=== PATIENT | male | born 1950 | race Asian ===

== ENCOUNTER 2018-01-01 08:31 | Inpatient (IN) | payer MEDICARE, MEDICAID ==
[~2018-01-01] VITALS: Ht 154.9 cm; Wt 82.6 kg
[~2018-01-01 08:31] MED LIST: ALLO100T PO; COLC0.6T69 PO; GLIP5TAB13 PO; LISI-600 PO; RANI150T44 PO
[2018-01-01] MEDS ORDERED: aspirin 81mg tab.chew PO ONE (08:50)
[2018-01-01 09:02] LABS: BASOPHILS % (AUTO) 0.5 % (0-1); EOSINOPHILS # (AUTO) 0.1 X10'3 (0-0.9); EOSINOPHILS % (AUTO) 1.7 % (0-6); HEMATOCRIT 31.8 % (42.0-52.0); LYMPHOCYTES # (AUTO) 1.4 X10'3 (1.1-4.8); LYMPHOCYTES % (AUTO) 16.7 % (21-51); MEAN CORPUSCULAR HEMOGLOBIN 32.6 PG (27.0-31.0); MEAN CORPUSCULAR HGB CONC 34.5 % (33.0-36.5); MEAN CORPUSCULAR VOLUME 94.5 FL (78-98); MEAN PLATELET VOLUME 9.4 FL (7.4-10.4); MONOCYTES # (AUTO) 0.4 X10'3 (0-0.9); MONOCYTES % (AUTO) 5.1 % (2-12); NEUTROPHILS # (AUTO) 6.4 X10'3 (1.8-7.7); PLATELET COUNT 153 X10'3 (140-440); RED BLOOD COUNT 3.36 X10'6 (4.70-6.10); RED CELL DISTRIBUTION WIDTH 13.1 % (11.5-14.5); WHITE BLOOD COUNT 8.4 X10'3 (4.5-11.0)
[2018-01-01 09:28] LABS: ALANINE AMINOTRANSFERASE 16 U/L (12-78); ALBUMIN 2.9 G/DL (3.4-5.0); ALBUMIN/GLOBULIN RATIO 0.6 (1.1-1.5); ALKALINE PHOSPHATASE 113 IU/L (46-116); ANION GAP 13 (8-16); ASPARTATE AMINO TRANSFERASE 19 U/L (10-37); BILIRUBIN,TOTAL 0.3 MG/DL (0.1-1.0); BLOOD UREA NITROGEN 41 MG/DL (7-18); BUN/CREATININE RATIO 10.3 (5.4-32.0); CALCIUM 7.1 MG/DL (8.5-10.1); CHLORIDE 109 MMOL/L (99-107); CREATININE 3.99 MG/DL (0.60-1.10); GLUCOSE 93 MG/DL (70-104); POTASSIUM 4.9 MMOL/L (3.5-5.1); SODIUM 144 MMOL/L (135-145); TOTAL CARBON DIOXIDE 21.7 MMOL/L (24-32); TOTAL PROTEIN 7.5 G/DL (6.4-8.2); eGFR 15 ML/MIN
[2018-01-01] MEDS ORDERED: cloNIDine 0.1 mg tablet PO ONE (09:40)
[2018-01-01] MEDS ORDERED: furosemide 10 MG/1 ML 10ml inj IV ONE (09:40)
[2018-01-01 09:55] LABS: PARTIAL THROMBOPLASTIN TIME 27 SECONDS (22-32); PROTHROMBIN TIME 10.8 SECONDS (9.0-12.0)
[2018-01-01] MEDS ORDERED: magnesium hydroxide 30ml (MOM) UD suspension PO PRN (10:45)
[2018-01-01] MEDS ORDERED: magnesium 2GM in 50ml NS 50 ML IV PRN (10:45)
[2018-01-01] MEDS ORDERED: ondansetron/PF 4mg/2ml inj IV PRN (10:45)
[2018-01-01] MEDS ORDERED: mag hydrox/Alum hydrox/simeth 30ml oral suspension PO PRN (10:45)
[2018-01-01] MEDS ORDERED: acetaminophen 325mg tablet PO PRN (10:45)
[2018-01-01] MEDS ORDERED: morphine 4 MG/ML inj SYRINge IV PRN ×2 (10:45)
[2018-01-01] MEDS ORDERED: bisacodyl 10mg suppository rectal RC PRN (10:45)
[2018-01-01] MEDS ORDERED: potassium Cl 40MEQ/NS 500ml 500 ML IV PRN ×2 (10:45)
[2018-01-01] MEDS ORDERED: magnesium Cl slow-release 64mg tablet PO PRN (10:45)
[2018-01-01] MEDS ORDERED: magnesium 4gm in 100ml NS 100 ML IV PRN (10:45)
[2018-01-01] MEDS ORDERED: potassium Cl 20 mEq SR tablet PO PRN ×2 (10:45)
[2018-01-01] MEDS ORDERED: nitroGLYCERIN 0.4mg SUBLingual tab SL PRN (10:55)
[2018-01-01] MEDS ORDERED: metoprolol tartrate 25mg tablet PO SCH (10:55)
[2018-01-01] MEDS ORDERED: heparin 10,000 units/1 ML INJ IV ONE (10:55)
[2018-01-01] MEDS ORDERED: insulin Lispro (HumaLOG) vial - multi-dose SQ SCH (11:05)
[2018-01-01] MEDS ORDERED: dextrose 50%-water 50ml dispensing syringe IV PRN ×2 (11:05)
[2018-01-01] MEDS ORDERED: glucagon, human recombinant 1mg kit SUBCUT PRN (11:05)
[2018-01-01] MEDS ORDERED: dextrose ORAL solution 15 GM/59 ML bottle PO PRN ×2 (11:05)
[2018-01-01] MEDS ORDERED: MESSAGE TO PHARMACY PO ONE (11:05)
[2018-01-01] MEDS ORDERED: DOBUTamine-DoBUTrex 500mg/D5W 250 ML IV SCH (11:20)
[2018-01-01] MEDS ORDERED: carVEDilol 12.5mg tablet PO SCH (11:20)
[2018-01-01 12:15] LABS: HEMOGLOBIN A1C 5.4 % (4.5-6.2)
[2018-01-01 12:18] LABS: TROPONIN I 1.21 NG/ML (0.0-0.05)
[2018-01-01] MEDS: pantoprazole 40 MG vial IV SCH (13:06)
[2018-01-01] MEDS: atorvastatin 20mg tablet PO SCH (13:50)
[2018-01-01] MEDS: carVEDilol 12.5mg tablet PO SCH ×2 (13:50→20:00)
[2018-01-01] MEDS: furosemide 20 MG/2 ML vial IV SCH (16:07)
[2018-01-01] MEDS ORDERED: LORA10TA7 PO (16:15)
[2018-01-01] MEDS: docusate sod 100mg capsule PO SCH (20:26)
[2018-01-01 20:46] LABS: CLARITY,URINE CLEAR (Clear); COLOR,URINE STRAW (Yellow); GLUCOSE, URINE NEGATIVE (Neg); KETONES,URINE NEGATIVE (Neg); LEUKOCYTE ESTERASE ,URINE NEGATIVE (Neg); NITRITES, URINE NEGATIVE (Neg); OCCULT BLOOD,URINE SMALL (Neg); PH,URINE 5.5 (4.8-8.0); PROTEIN,URINE 100 mg/dl (Neg); UROBILINOGEN,URINE 0.2 E.U/dL (0.2-1.0)
[2018-01-01 20:55] LABS: UA COLLECTION TYPE CLN CATCH MIDSTREAM
[2018-01-01 20:56] LABS: RBC,URINE 0-2 /HPF (0-2); WBC,URINE 0-4 /HPF (0-4)
[2018-01-01 20:57] LABS: BACTERIA,URINE 1+ /HPF (Neg); SQUAMOUS EPITHELIAL CELL,UR NONE SEEN /LPF (FEW)
[2018-01-01] MEDS: insulin glargine (Lantus) pen - multi-dose SQ SCH (21:00)
[2018-01-01] MEDS: DOBUTamine-DoBUTrex 500mg/D5W 250 ML IV SCH (21:00)
[2018-01-02] MEDS: furosemide 20 MG/2 ML vial IV SCH ×3 (00:29→16:31)
[2018-01-02 02:38] LABS: BASOPHILS % (AUTO) 0.4 % (0-1); EOSINOPHILS # (AUTO) 0.2 X10'3 (0-0.9); EOSINOPHILS % (AUTO) 2.5 % (0-6); HEMOGLOBIN 9.9 g/dl (14.0-17.9); LYMPHOCYTES # (AUTO) 1.8 X10'3 (1.1-4.8); LYMPHOCYTES % (AUTO) 22.1 % (21-51); MEAN CORPUSCULAR HEMOGLOBIN 32.4 PG (27.0-31.0); MEAN CORPUSCULAR HGB CONC 34.3 % (33.0-36.5); MEAN CORPUSCULAR VOLUME 94.6 FL (78-98); MEAN PLATELET VOLUME 9.1 FL (7.4-10.4); MONOCYTES # (AUTO) 0.6 X10'3 (0-0.9); NEUTROPHILS # (AUTO) 5.6 X10'3 (1.8-7.7); PLATELET COUNT 139 X10'3 (140-440); RED BLOOD COUNT 3.07 X10'6 (4.70-6.10); RED CELL DISTRIBUTION WIDTH 13.3 % (11.5-14.5); WHITE BLOOD COUNT 8.2 X10'3 (4.5-11.0)
[2018-01-02 02:52] LABS: ALANINE AMINOTRANSFERASE 16 U/L (12-78); ALBUMIN 2.6 G/DL (3.4-5.0); ALBUMIN/GLOBULIN RATIO 0.7 (1.1-1.5); ALKALINE PHOSPHATASE 94 IU/L (46-116); ANION GAP 9 (8-16); ASPARTATE AMINO TRANSFERASE 13 U/L (10-37); BILIRUBIN,TOTAL 0.4 MG/DL (0.1-1.0); BLOOD UREA NITROGEN 46 MG/DL (7-18); BUN/CREATININE RATIO 10.1 (5.4-32.0); CHLORIDE 106 MMOL/L (99-107); CHOL/HDL RATIO 4.3 (0.00-4.99); CHOLESTEROL 160 MG/DL (0-200); CREATININE 4.54 MG/DL (0.60-1.10); GLUCOSE 89 MG/DL (70-104); HDL CHOLESTEROL 37 MG/DL (35-60); LDL CHOLESTEROL 109 MG/DL (50-100); MAGNESIUM 1.4 MG/DL (1.5-2.4); POTASSIUM 4.1 MMOL/L (3.5-5.1); SODIUM 141 MMOL/L (135-145); TOTAL CARBON DIOXIDE 25.8 MMOL/L (24-32); TOTAL PROTEIN 6.5 G/DL (6.4-8.2); TRIGLYCERIDES 58 MG/DL (20-135); eGFR 13 ML/MIN
[2018-01-02] MEDS: heparin 10,000 units/1 ML INJ IV PRN (04:05)
[2018-01-02] MEDS ORDERED: FLU VACC QS2017-18 36MOS UP/PF 60 MCG/0.5 ML SYRINGE IMVAC ONE (07:55)
[2018-01-02] MEDS: K and/or MAG REPLACEMENT MC SCH (08:00)
[2018-01-02] MEDS ORDERED: lisinopril 20mg tablet PO SCH (08:00)
[2018-01-02] MEDS: pantoprazole 40 MG vial IV SCH (09:38)
[2018-01-02] MEDS: carVEDilol 12.5mg tablet PO SCH ×2 (09:39→19:51)
[2018-01-02] MEDS: aspirin 81mg tablet.DR PO SCH (09:39)
[2018-01-02] MEDS: atorvastatin 20mg tablet PO SCH (09:39)
[2018-01-02] MEDS: allopurinol 100mg tablet PO SCH (10:07)
[2018-01-02] MEDS: docusate sod 100mg capsule PO SCH ×2 (10:08→19:51)
[2018-01-02] MEDS: DOBUTamine-DoBUTrex 500mg/D5W 250 ML IV SCH (13:02)
[2018-01-02] MEDS ORDERED: epoetin 20,000 units/ml inj IV ONE (14:30)
[2018-01-02 15:00] VITALS: BP 133/80
[2018-01-02 18:24] LABS: FERRITIN 590 NG/ML (26-388)
[2018-01-02 19:00] VITALS: BP 132/74
[2018-01-02 19:01] LABS: % IRON SATURATION 28 % (11-46); IRON 57 UG/DL (53-167); TOTAL IRON BINDING CAPACITY 207 UG/DL (259-388)
[2018-01-02 19:50] VITALS: BP 146/84
[2018-01-02] MEDS: insulin glargine (Lantus) pen - multi-dose SQ SCH (21:00)
[2018-01-02 23:00] VITALS: BP 138/79
[2018-01-03] VITALS (24 sets, daily range): BP systolic 109–190; BP diastolic 62–85
[2018-01-03] MEDS: furosemide 20 MG/2 ML vial IV SCH ×3 (00:05→19:36)
[2018-01-03 06:59] LABS: BASOPHILS % (AUTO) 0.5 % (0-1); EOSINOPHILS # (AUTO) 0.2 X10'3 (0-0.9); EOSINOPHILS % (AUTO) 2.1 % (0-6); HEMOGLOBIN 10.5 g/dl (14.0-17.9); LYMPHOCYTES # (AUTO) 1.7 X10'3 (1.1-4.8); LYMPHOCYTES % (AUTO) 17.2 % (21-51); MEAN CORPUSCULAR HEMOGLOBIN 32.1 PG (27.0-31.0); MEAN CORPUSCULAR HGB CONC 33.8 % (33.0-36.5); MEAN CORPUSCULAR VOLUME 95.2 FL (78-98); MEAN PLATELET VOLUME 10.2 FL (7.4-10.4); MONOCYTES # (AUTO) 0.5 X10'3 (0-0.9); MONOCYTES % (AUTO) 4.9 % (2-12); NEUTROPHILS # (AUTO) 7.4 X10'3 (1.8-7.7); NEUTROPHILS % (AUTO) 75.3 % (42-75); PLATELET COUNT 122 X10'3 (140-440); RED BLOOD COUNT 3.26 X10'6 (4.70-6.10); RED CELL DISTRIBUTION WIDTH 13.2 % (11.5-14.5); WHITE BLOOD COUNT 9.8 X10'3 (4.5-11.0)
[2018-01-03 07:18] LABS: ALANINE AMINOTRANSFERASE 14 U/L (12-78); ALBUMIN 2.7 G/DL (3.4-5.0); ALBUMIN/GLOBULIN RATIO 0.6 (1.1-1.5); ALKALINE PHOSPHATASE 95 IU/L (46-116); ANION GAP 11 (8-16); ASPARTATE AMINO TRANSFERASE 16 U/L (10-37); BILIRUBIN,TOTAL 0.4 MG/DL (0.1-1.0); BLOOD UREA NITROGEN 56 MG/DL (7-18); BUN/CREATININE RATIO 12.2 (5.4-32.0); CHLORIDE 103 MMOL/L (99-107); CREATININE 4.59 MG/DL (0.60-1.10); GLUCOSE 105 MG/DL (70-104); MAGNESIUM 1.4 MG/DL (1.5-2.4); SODIUM 139 MMOL/L (135-145); eGFR 13 ML/MIN
[2018-01-03 07:19] LABS: POTASSIUM 4.6 MMOL/L (3.5-5.1)
[2018-01-03] MEDS: carVEDilol 12.5mg tablet PO SCH ×2 (07:41→19:35)
[2018-01-03] MEDS: atorvastatin 20mg tablet PO SCH (07:41)
[2018-01-03] MEDS: docusate sod 100mg capsule PO SCH ×2 (07:41→19:36)
[2018-01-03] MEDS: pantoprazole 40 MG vial IV SCH (07:41)
[2018-01-03] MEDS: aspirin 81mg tablet.DR PO SCH (07:41)
[2018-01-03] MEDS: allopurinol 100mg tablet PO SCH (07:41)
[2018-01-03] MEDS: K and/or MAG REPLACEMENT MC SCH (08:55)
[2018-01-03] MEDS: DOBUTamine-DoBUTrex 500mg/D5W 250 ML IV SCH (10:56)
[2018-01-03] MEDS: heparin 10,000 units/1 ML INJ IV PRN (11:43)
[2018-01-03 13:25] LABS: A/G RATIO 0.8 (0.7-1.7); ALBUMIN 2.5 g/dL (2.9-4.4); BETA GLOBULIN 0.9 g/dL (0.7-1.3); GAMMA GLOBULIN 1.3 g/dL (0.4-1.8); GLOBULIN, TOTAL 3.3 g/dL (2.2-3.9); M-SPIKE Not Observed g/dL (Not Observed); PROTEIN, TOTAL, SERUM 5.8 g/dL (6.0-8.5)
[2018-01-03] MEDS ORDERED: LIDOcaine 1%/PF (10mg/ml) 5ml vial ONE ×2 (14:53→14:59)
[2018-01-03] MEDS ORDERED: heparin 1,000unit/ml 10ml vial 10 ML ONE (14:53)
[2018-01-03] MEDS ORDERED: nitroGLYCERIN-Tridil 50MG/D5W 250 ML IV ONE (14:55)
[2018-01-03] MEDS ORDERED: iohexol 350 MG/ML 50ML vial IV ONE (14:55)
[2018-01-03] MEDS ORDERED: iohexol 350MG/ML 100ml bottle IV ONE ×2 (14:55→16:18)
[2018-01-03] MEDS ORDERED: midazolam 2 mg/2 ml injection ONE (15:42)
[2018-01-03] MEDS ORDERED: fentaNYL/PF 50MCG/1 ML 2ML syringe ONE (15:42)
[2018-01-03] MEDS ORDERED: clopidogrel 300mg tablet ONE (16:47)
[2018-01-03 17:21] LABS: ISTAT HGB ART 10.5 g/dl (14.0-18.0); ISTAT Hct ART 31 %PCV (42-52); ISTAT O2 SATURATION ARTERIAL 96 % (95-98); ISTAT SOURCE ART
[2018-01-03] MEDS ORDERED: sodium bicarbonate (8.4%) inj. 150 MEQ in sodium chloride 0.45% 1,000 ML IV SCH (17:45)
[2018-01-03] MEDS ORDERED: hydrALAZINE 25 MG tablet PO PRN (17:50)
[2018-01-03] MEDS ORDERED: aspirin 81mg tab.chew PO ONE (17:50)
[2018-01-03] MEDS ORDERED: HYDROcodone/acetaminophen 10/325mg tab PO PRN (17:50)
[2018-01-03] MEDS: acetylcysteine 200 MG/ml 4ml vial PO SCH (19:58)
[2018-01-03] MEDS: insulin glargine (Lantus) pen - multi-dose SQ SCH (21:00)
[2018-01-04] VITALS (22 sets, daily range): BP systolic 115–152; BP diastolic 53–88
[2018-01-04] MEDS: furosemide 20 MG/2 ML vial IV SCH ×3 (00:22→16:13)
[2018-01-04 05:49] LABS: BASOPHILS % (AUTO) 0.3 % (0-1); EOSINOPHILS # (AUTO) 0.2 X10'3 (0-0.9); EOSINOPHILS % (AUTO) 1.8 % (0-6); HEMATOCRIT 31.6 % (42.0-52.0); HEMOGLOBIN 10.9 g/dl (14.0-17.9); LYMPHOCYTES # (AUTO) 1.1 X10'3 (1.1-4.8); LYMPHOCYTES % (AUTO) 12.4 % (21-51); MEAN CORPUSCULAR HEMOGLOBIN 32.5 PG (27.0-31.0); MEAN CORPUSCULAR HGB CONC 34.4 % (33.0-36.5); MEAN CORPUSCULAR VOLUME 94.4 FL (78-98); MEAN PLATELET VOLUME 9.6 FL (7.4-10.4); MONOCYTES # (AUTO) 0.7 X10'3 (0-0.9); NEUTROPHILS % (AUTO) 77.5 % (42-75); PLATELET COUNT 125 X10'3 (140-440); RED BLOOD COUNT 3.34 X10'6 (4.70-6.10); WHITE BLOOD COUNT 9.1 X10'3 (4.5-11.0)
[2018-01-04 06:24] LABS: ALPHA-1-GLOBULIN,UR 2.6 % (.); ALPHA-2-GLOBULIN,UR 6.6 % (.); GAMMA GLOBULIN,UR 15.8 % (.); PROTEIN,TOTAL,URINE 145.3 mg/dL (Not Estab.)
[2018-01-04 06:41] LABS: ALANINE AMINOTRANSFERASE 18 U/L (12-78); ALBUMIN 2.9 G/DL (3.4-5.0); ALBUMIN/GLOBULIN RATIO 0.7 (1.1-1.5); ALKALINE PHOSPHATASE 103 IU/L (46-116); ANION GAP 11 (8-16); ASPARTATE AMINO TRANSFERASE 14 U/L (10-37); BILIRUBIN,TOTAL 0.4 MG/DL (0.1-1.0); BLOOD UREA NITROGEN 56 MG/DL (7-18); BUN/CREATININE RATIO 11.7 (5.4-32.0); CHLORIDE 99 MMOL/L (99-107); CREATININE 4.78 MG/DL (0.60-1.10); GLUCOSE 100 MG/DL (70-104); MAGNESIUM 1.5 MG/DL (1.5-2.4); POTASSIUM 4.6 MMOL/L (3.5-5.1); SODIUM 138 MMOL/L (135-145); TOTAL PROTEIN 7.2 G/DL (6.4-8.2); eGFR 12 ML/MIN
[2018-01-04] MEDS: atorvastatin 20mg tablet PO SCH (07:24)
[2018-01-04] MEDS: docusate sod 100mg capsule PO SCH ×2 (07:24→21:26)
[2018-01-04] MEDS: DOBUTamine-DoBUTrex 500mg/D5W 250 ML IV SCH (07:24)
[2018-01-04] MEDS: allopurinol 100mg tablet PO SCH (07:24)
[2018-01-04] MEDS: carVEDilol 12.5mg tablet PO SCH ×2 (07:24→21:27)
[2018-01-04] MEDS: clopidogrel 75mg tablet PO SCH (07:24)
[2018-01-04] MEDS: pantoprazole 40 MG vial IV SCH (07:25)
[2018-01-04] MEDS: acetylcysteine 200 MG/ml 4ml vial PO SCH ×2 (07:25→21:27)
[2018-01-04] MEDS: K and/or MAG REPLACEMENT MC SCH (08:30)
[2018-01-04] MEDS: aspirin 325mg tablet PO SCH (08:36)
[2018-01-04] MEDS: insulin glargine (Lantus) pen - multi-dose SQ SCH (21:00)
[2018-01-05] VITALS (23 sets, daily range): BP systolic 115–183; BP diastolic 45–115
[2018-01-05] MEDS: furosemide 20 MG/2 ML vial IV SCH ×3 (01:12→16:00)
[2018-01-05] MEDS: DOBUTamine-DoBUTrex 500mg/D5W 250 ML IV SCH ×2 (05:43→21:55)
[2018-01-05 06:33] LABS: BASOPHILS % (AUTO) 0 % (0-1); EOSINOPHILS # (AUTO) 0.2 X10'3 (0-0.9); HEMATOCRIT 29.6 % (42.0-52.0); LYMPHOCYTES # (AUTO) 0.9 X10'3 (1.1-4.8); LYMPHOCYTES % (AUTO) 10.9 % (21-51); MEAN CORPUSCULAR HGB CONC 33.8 % (33.0-36.5); MEAN CORPUSCULAR VOLUME 94.8 FL (78-98); MEAN PLATELET VOLUME 10.1 FL (7.4-10.4); MONOCYTES # (AUTO) 0.7 X10'3 (0-0.9); MONOCYTES % (AUTO) 9.2 % (2-12); NEUTROPHILS # (AUTO) 6.4 X10'3 (1.8-7.7); NEUTROPHILS % (AUTO) 77.9 % (42-75); PLATELET COUNT 111 X10'3 (140-440); RED BLOOD COUNT 3.12 X10'6 (4.70-6.10); RED CELL DISTRIBUTION WIDTH 13.2 % (11.5-14.5); WHITE BLOOD COUNT 8.2 X10'3 (4.5-11.0)
[2018-01-05 07:12] LABS: ALANINE AMINOTRANSFERASE 26 U/L (12-78); ALBUMIN 2.7 G/DL (3.4-5.0); ALBUMIN/GLOBULIN RATIO 0.7 (1.1-1.5); ALKALINE PHOSPHATASE 96 IU/L (46-116); ANION GAP 9 (8-16); ASPARTATE AMINO TRANSFERASE 23 U/L (10-37); BILIRUBIN,TOTAL 0.3 MG/DL (0.1-1.0); BLOOD UREA NITROGEN 62 MG/DL (7-18); BUN/CREATININE RATIO 10.4 (5.4-32.0); CALCIUM 6.9 MG/DL (8.5-10.1); CHLORIDE 98 MMOL/L (99-107); CREATININE 5.98 MG/DL (0.60-1.10); GLUCOSE 98 MG/DL (70-104); MAGNESIUM 1.9 MG/DL (1.5-2.4); POTASSIUM 4.2 MMOL/L (3.5-5.1); SODIUM 138 MMOL/L (135-145); TOTAL CARBON DIOXIDE 30.9 MMOL/L (24-32); TOTAL PROTEIN 6.8 G/DL (6.4-8.2); eGFR 9 ML/MIN
[2018-01-05] MEDS: K and/or MAG REPLACEMENT MC SCH (08:00)
[2018-01-05] MEDS: aspirin 325mg tablet PO SCH (08:03)
[2018-01-05] MEDS: pantoprazole 40 MG vial IV SCH (08:03)
[2018-01-05] MEDS: carVEDilol 12.5mg tablet PO SCH ×2 (08:03→20:04)
[2018-01-05] MEDS: atorvastatin 20mg tablet PO SCH (08:03)
[2018-01-05] MEDS: allopurinol 100mg tablet PO SCH (08:03)
[2018-01-05] MEDS: acetylcysteine 200 MG/ml 4ml vial PO SCH ×2 (08:03→20:00)
[2018-01-05] MEDS: clopidogrel 75mg tablet PO SCH (08:03)
[2018-01-05] MEDS: docusate sod 100mg capsule PO SCH ×2 (08:03→20:04)
[2018-01-05] MEDS ORDERED: heparin 1,000unit/ml 10ml vial 10 ML IV ONE (09:23)
[2018-01-05] MEDS ORDERED: epoetin 20,000 units/ml inj IV ONE (09:25)
[2018-01-05] MEDS ORDERED: heparin 1,000 units/ml 10ml inj IV ONE (09:25)
[2018-01-05] MEDS ORDERED: albumin (human) 25% 100ml IV 100 ML IV PRN (09:25)
[2018-01-05] MEDS ORDERED: heparin 1,000 units/ml 10ml inj HE ONE ×2 (09:30)
[2018-01-05] MEDS: normal saline 1000ml 1,000 ML IV SCH (10:57)
[2018-01-05] MEDS ORDERED: pantoprazole 40mg Tablet.DR PO SCH (11:35)
[2018-01-05] MEDS ORDERED: heparin 1,000 units/ml 10ml inj ICATH ONE (13:10)
[2018-01-05] MEDS ORDERED: LIDOcaine 1%/PF (10mg/ml) 5ml vial SQ ONE (13:10)
[2018-01-05] MEDS ORDERED: fentaNYL/PF 50MCG/1 ML 2ML syringe IV PRN (13:10)
[2018-01-05] MEDS ORDERED: LIDOcaine 1%/PF (10mg/ml) 5ml vial ONE (13:22)
[2018-01-05] MEDS ORDERED: fentaNYL/PF 50MCG/1 ML 2ML syringe ONE (13:34)
[2018-01-05] MEDS ORDERED: heparin 1,000unit/ml 10ml vial 10 ML ONE (13:34)
[2018-01-05] MEDS: insulin glargine (Lantus) pen - multi-dose SQ SCH (21:00)
[2018-01-06] MEDS: normal saline 1000ml 1,000 ML IV SCH (00:17)
[2018-01-06] MEDS: HYDROcodone/acetaminophen 10/325mg tab PO PRN ×3 (00:40→13:40)
[2018-01-06 01:00] VITALS: BP 128/65
[2018-01-06 03:00] VITALS: BP 137/71
[2018-01-06 05:00] VITALS: BP 150/70
[2018-01-06 06:00] VITALS: BP 115/95
[2018-01-06 07:31] LABS: BASOPHILS % (AUTO) 0.3 % (0-1); EOSINOPHILS # (AUTO) 0.1 X10'3 (0-0.9); EOSINOPHILS % (AUTO) 1.2 % (0-6); HEMATOCRIT 28.1 % (42.0-52.0); HEMOGLOBIN 9.6 g/dl (14.0-17.9); LYMPHOCYTES # (AUTO) 1.2 X10'3 (1.1-4.8); MEAN CORPUSCULAR HEMOGLOBIN 32.2 PG (27.0-31.0); MEAN CORPUSCULAR HGB CONC 34.2 % (33.0-36.5); MEAN CORPUSCULAR VOLUME 94.2 FL (78-98); MEAN PLATELET VOLUME 10.3 FL (7.4-10.4); MONOCYTES # (AUTO) 0.7 X10'3 (0-0.9); MONOCYTES % (AUTO) 8.3 % (2-12); NEUTROPHILS # (AUTO) 6.3 X10'3 (1.8-7.7); NEUTROPHILS % (AUTO) 76.2 % (42-75); PLATELET COUNT 99 X10'3 (140-440); RED BLOOD COUNT 2.99 X10'6 (4.70-6.10); RED CELL DISTRIBUTION WIDTH 13.2 % (11.5-14.5); WHITE BLOOD COUNT 8.3 X10'3 (4.5-11.0)
[2018-01-06 07:56] LABS: ALANINE AMINOTRANSFERASE 25 U/L (12-78); ALBUMIN 2.6 G/DL (3.4-5.0); ALBUMIN/GLOBULIN RATIO 0.6 (1.1-1.5); ALKALINE PHOSPHATASE 91 IU/L (46-116); ANION GAP 11 (8-16); ASPARTATE AMINO TRANSFERASE 17 U/L (10-37); BILIRUBIN,TOTAL 0.3 MG/DL (0.1-1.0); BLOOD UREA NITROGEN 46 MG/DL (7-18); BUN/CREATININE RATIO 8.6 (5.4-32.0); CALCIUM 7.1 MG/DL (8.5-10.1); CHLORIDE 98 MMOL/L (99-107); CREATININE 5.33 MG/DL (0.60-1.10); GLUCOSE 86 MG/DL (70-104); MAGNESIUM 1.7 MG/DL (1.5-2.4); POTASSIUM 4.1 MMOL/L (3.5-5.1); SODIUM 136 MMOL/L (135-145); TOTAL CARBON DIOXIDE 27.2 MMOL/L (24-32); TOTAL PROTEIN 6.8 G/DL (6.4-8.2); eGFR 11 ML/MIN
[2018-01-06] MEDS: carVEDilol 12.5mg tablet PO SCH (08:00)
[2018-01-06] MEDS ORDERED: epoetin 20,000 units/ml inj IV ONE (08:00)
[2018-01-06] MEDS: furosemide 20 MG/2 ML vial IV SCH ×2 (08:00)
[2018-01-06] MEDS ORDERED: heparin 1,000 units/ml 10ml inj HE ONE ×2 (08:00)
[2018-01-06] MEDS: acetylcysteine 200 MG/ml 4ml vial PO SCH (08:00)
[2018-01-06] MEDS ORDERED: heparin 1,000unit/ml 10ml vial 10 ML IV ONE (08:00)
[2018-01-06] MEDS: K and/or MAG REPLACEMENT MC SCH (08:00)
[2018-01-06] MEDS ORDERED: heparin 1,000 units/ml 10ml inj IV ONE (08:00)
[2018-01-06] MEDS ORDERED: albumin (human) 25% 100ml IV 100 ML IV PRN (08:00)
[2018-01-06] MEDS: allopurinol 100mg tablet PO SCH (10:51)
[2018-01-06] MEDS: docusate sod 100mg capsule PO SCH (10:51)
[2018-01-06] MEDS: aspirin 325mg tablet PO SCH (10:51)
[2018-01-06] MEDS: clopidogrel 75mg tablet PO SCH (10:51)
[2018-01-06] MEDS: atorvastatin 20mg tablet PO SCH (10:52)
[2018-01-06 11:00] VITALS: BP 148/68
[2018-01-06] MEDS ORDERED: ATOR40TA PO (11:47)
[2018-01-06] MEDS ORDERED: CARV-50 PO (11:47)
[2018-01-06] MEDS ORDERED: CLOP75TA15 PO (11:47)
[2018-01-06] MEDS ORDERED: FURO-149 PO (11:47)
[2018-01-06] MEDS ORDERED: ASPI81TA52 PO (11:47)
[2018-01-06] MEDS ORDERED: LISI10TA4 PO (11:47)
[2018-01-07 11:08] LABS: HBSAG SCREEN Negative (Negative)
[2018-01-08 09:46] LABS: ISTAT Hct MIX 31 %PCV (42-52); ISTAT O2 SATURATION MIX VENOUS 57 % (60-80); ISTAT SOURCE MIX
== END 2018-01-06 14:17 | disposition home or self-care (01) | DRG 246 ==
LOC: ER 08:31 → ED HOLD 09:49 → PCU 3S 01-02 14:17 → ICU 2S 01-03 17:20 → PCU 3S 01-04 11:18
PROVIDERS: ADMIT Internal Medicine; ATTEND Family Medicine
PROC: 4A023N8 Measurement of Cardiac Sampling and Pressure, Bilateral, Percutaneous Approach (ICD-10-PCS; principal; 2018-01-03)
PROC: 027034Z Dilation of Coronary Artery, One Artery with Drug-eluting Intraluminal Device, Percutaneous Approach (ICD-10-PCS; 2018-01-03)
PROC: B2111ZZ Fluoroscopy of Multiple Coronary Arteries using Low Osmolar Contrast (ICD-10-PCS; 2018-01-03)
PROC: B2151ZZ Fluoroscopy of Left Heart using Low Osmolar Contrast (ICD-10-PCS; 2018-01-03)
PROC: 0JH63XZ Insertion of Tunneled Vascular Access Device into Chest Subcutaneous Tissue and Fascia, Percutaneous Approach (ICD-10-PCS; 2018-01-05)
PROC: 02HV33Z Insertion of Infusion Device into Superior Vena Cava, Percutaneous Approach (ICD-10-PCS; 2018-01-05)
PROC: B548ZZA Ultrasonography of Superior Vena Cava, Guidance (ICD-10-PCS; 2018-01-05)
PROC: 5A1D70Z Performance of Urinary Filtration, Intermittent, Less than 6 Hours Per Day (ICD-10-PCS; 2018-01-05)
PROC: 5A1D70Z Performance of Urinary Filtration, Intermittent, Less than 6 Hours Per Day (ICD-10-PCS; 2018-01-06)
DX: I13.0 Hypertensive heart and chronic kidney disease with heart failure and stage 1 through stage 4 chronic kidney disease, or unspecified chronic kidney disease (principal); I50.41 Acute combined systolic (congestive) and diastolic (congestive) heart failure; N17.9 Acute kidney failure, unspecified; N18.4 Chronic kidney disease, stage 4 (severe); E11.21 Type 2 diabetes mellitus with diabetic nephropathy; I25.10 Atherosclerotic heart disease of native coronary artery without angina pectoris; D64.9 Anemia, unspecified; K59.09 Other constipation; E11.22 Type 2 diabetes mellitus with diabetic chronic kidney disease; E78.5 Hyperlipidemia, unspecified; G89.29 Other chronic pain; K21.9 Gastro-esophageal reflux disease without esophagitis; M10.9 Gout, unspecified; Z91.19 Patient's noncompliance with other medical treatment and regimen; Z79.82 Long term (current) use of aspirin; Z79.84 Long term (current) use of oral hypoglycemic drugs; Z79.899 Other long term (current) drug therapy; Z82.49 Family history of ischemic heart disease and other diseases of the circulatory system; Z83.3 Family history of diabetes mellitus; Z23 Encounter for immunization
CPT/HCPCS: 36558; 93306; 93460; C9600; 36415; 71045; 76937; 77001; 80053; 80061; 81001; 82728; 82803; 82948; 83036; 83540; 83550; 83735; 83880; 84155; 84156; 84165; 84166; 84484; 85014; 85025; 85347; 85610; 85730; 87340; 93005; 99152; 99153; 99285; A4620; A6257; A6258; A9270; C1725; C1750; C1769; C1874; C1894; C9113; G0257; J0885; J1250; J1644; J1815; J1940; J2001; J2150; J2250; J2270; J2405; J3010; J3490; J7030; P9047; Q2037; Q9967

== ENCOUNTER 2018-01-08 22:58 | Inpatient (IN) | payer MEDICARE, MEDICAID ==
[~2018-01-08] VITALS: Ht 154.9 cm; Wt 84.5 kg
[~2018-01-08 22:58] MED LIST changes: +ASPI81TA52 PO; +ATOR40TA PO; +CARV-50 PO; +CLOP75TA15 PO; -COLC0.6T69 PO; +FURO-149 PO; -GLIP5TAB13 PO; -LISI-600 PO; +LISI10TA4 PO; +LORA10TA7 PO
[2018-01-09 00:05] LABS: BASOPHILS % (AUTO) 0.4 % (0-1); EOSINOPHILS # (AUTO) 0.1 X10'3 (0-0.9); EOSINOPHILS % (AUTO) 1.1 % (0-6); HEMATOCRIT 34.1 % (42.0-52.0); HEMOGLOBIN 11.2 g/dl (14.0-17.9); LYMPHOCYTES # (AUTO) 1.3 X10'3 (1.1-4.8); MEAN CORPUSCULAR HEMOGLOBIN 31.1 PG (27.0-31.0); MEAN CORPUSCULAR HGB CONC 32.8 % (33.0-36.5); MEAN CORPUSCULAR VOLUME 94.9 FL (78-98); MEAN PLATELET VOLUME 10.5 FL (7.4-10.4); MONOCYTES # (AUTO) 0.5 X10'3 (0-0.9); MONOCYTES % (AUTO) 5.6 % (2-12); NEUTROPHILS # (AUTO) 7.9 X10'3 (1.8-7.7); NEUTROPHILS % (AUTO) 79.9 % (42-75); PLATELET COUNT 188 X10'3 (140-440); RED BLOOD COUNT 3.59 X10'6 (4.70-6.10); RED CELL DISTRIBUTION WIDTH 12.3 % (11.5-14.5); WHITE BLOOD COUNT 9.8 X10'3 (4.5-11.0)
[2018-01-09 00:20] LABS: ALANINE AMINOTRANSFERASE 20 U/L (12-78); ALBUMIN 3.5 G/DL (3.4-5.0); ALBUMIN/GLOBULIN RATIO 0.7 (1.1-1.5); ALKALINE PHOSPHATASE 108 IU/L (46-116); ANION GAP 12 (8-16); ASPARTATE AMINO TRANSFERASE 9 U/L (10-37); BILIRUBIN,TOTAL 0.4 MG/DL (0.1-1.0); BLOOD UREA NITROGEN 74 MG/DL (7-18); BUN/CREATININE RATIO 8.3 (5.4-32.0); CALCIUM 7.7 MG/DL (8.5-10.1); CHLORIDE 94 MMOL/L (99-107); CREATININE 8.94 MG/DL (0.60-1.10); GLUCOSE 144 MG/DL (70-104); MAGNESIUM 2.5 MG/DL (1.5-2.4); POTASSIUM 4.6 MMOL/L (3.5-5.1); SODIUM 133 MMOL/L (135-145); TOTAL CARBON DIOXIDE 27.1 MMOL/L (24-32); TOTAL PROTEIN 8.4 G/DL (6.4-8.2); eGFR 6 ML/MIN
[2018-01-09 00:42] LABS: PARTIAL THROMBOPLASTIN TIME 29 SECONDS (22-32); PROTHROMBIN TIME 10.8 SECONDS (9.0-12.0)
[2018-01-09] MEDS ORDERED: ondansetron/PF 4mg/2ml inj IV PRN (01:30)
[2018-01-09] MEDS ORDERED: acetaminophen 325mg tablet PO PRN (01:30)
[2018-01-09 07:05] VITALS: BP 116/58
[2018-01-09] MEDS ORDERED: heparin 1,000unit/ml 10ml vial 10 ML IV ONE (08:43)
[2018-01-09] MEDS ORDERED: heparin 1,000 units/ml 10ml inj IV ONE (08:45)
[2018-01-09] MEDS ORDERED: albumin (human) 25% 100ml IV 100 ML IV PRN (08:45)
[2018-01-09] MEDS ORDERED: heparin 1,000 units/ml 10ml inj HE ONE ×2 (08:50)
[2018-01-09] MEDS: lisinopril 10 MG tablet PO SCH (08:50)
[2018-01-09] MEDS: carVEDilol 12.5mg tablet PO SCH ×2 (08:51→19:23)
[2018-01-09] MEDS: atorvastatin 20mg tablet PO SCH (08:51)
[2018-01-09] MEDS: aspirin 81mg tablet.DR PO SCH (08:51)
[2018-01-09] MEDS: allopurinol 100mg tablet PO SCH (08:51)
[2018-01-09] MEDS: furosemide 40mg tablet PO SCH ×2 (08:51→21:39)
[2018-01-09] MEDS: clopidogrel 75mg tablet PO SCH (08:51)
[2018-01-09] MEDS: loratadine 10mg tablet PO SCH (08:59)
[2018-01-09 11:00] VITALS: BP 96/91
[2018-01-09 15:00] VITALS: BP 114/67
[2018-01-09 19:00] VITALS: BP 120/69
[2018-01-09] MEDS: famotidine 20mg tablet PO SCH (21:39)
[2018-01-09 23:00] VITALS: BP 112/66
[2018-01-10] VITALS (9 sets, daily range): BP systolic 85–162; BP diastolic 41–76
[2018-01-10 05:24] LABS: BASOPHILS % (AUTO) 0.4 % (0-1); EOSINOPHILS # (AUTO) 0.2 X10'3 (0-0.9); EOSINOPHILS % (AUTO) 2.3 % (0-6); HEMATOCRIT 30.7 % (42.0-52.0); HEMOGLOBIN 10.5 g/dl (14.0-17.9); LYMPHOCYTES # (AUTO) 1.6 X10'3 (1.1-4.8); MEAN CORPUSCULAR HEMOGLOBIN 32.5 PG (27.0-31.0); MEAN CORPUSCULAR HGB CONC 34.1 % (33.0-36.5); MEAN CORPUSCULAR VOLUME 95.2 FL (78-98); MEAN PLATELET VOLUME 9.7 FL (7.4-10.4); MONOCYTES # (AUTO) 0.9 X10'3 (0-0.9); MONOCYTES % (AUTO) 9.2 % (2-12); NEUTROPHILS # (AUTO) 6.8 X10'3 (1.8-7.7); NEUTROPHILS % (AUTO) 71.1 % (42-75); PLATELET COUNT 180 X10'3 (140-440); RED BLOOD COUNT 3.23 X10'6 (4.70-6.10); RED CELL DISTRIBUTION WIDTH 13.1 % (11.5-14.5); WHITE BLOOD COUNT 9.5 X10'3 (4.5-11.0)
[2018-01-10 06:39] LABS: ALANINE AMINOTRANSFERASE 16 U/L (12-78); ALBUMIN 3.2 G/DL (3.4-5.0); ALBUMIN/GLOBULIN RATIO 0.8 (1.1-1.5); ALKALINE PHOSPHATASE 93 IU/L (46-116); ANION GAP 13 (8-16); ASPARTATE AMINO TRANSFERASE 8 U/L (10-37); BILIRUBIN,TOTAL 0.4 MG/DL (0.1-1.0); BLOOD UREA NITROGEN 54 MG/DL (7-18); BUN/CREATININE RATIO 8.9 (5.4-32.0); CALCIUM 7.5 MG/DL (8.5-10.1); CHLORIDE 98 MMOL/L (99-107); CREATININE 6.08 MG/DL (0.60-1.10); GLUCOSE 102 MG/DL (70-104); MAGNESIUM 2.1 MG/DL (1.5-2.4); PHOSPHORUS 4.8 MG/DL (2.3-4.5); POTASSIUM 4.7 MMOL/L (3.5-5.1); SODIUM 137 MMOL/L (135-145); TOTAL CARBON DIOXIDE 25.9 MMOL/L (24-32); TOTAL PROTEIN 7.2 G/DL (6.4-8.2); eGFR 9 ML/MIN
[2018-01-10] MEDS: atorvastatin 20mg tablet PO SCH (07:34)
[2018-01-10] MEDS: allopurinol 100mg tablet PO SCH (07:34)
[2018-01-10] MEDS: aspirin 81mg tablet.DR PO SCH (07:34)
[2018-01-10] MEDS: clopidogrel 75mg tablet PO SCH (07:34)
[2018-01-10] MEDS: loratadine 10mg tablet PO SCH (07:34)
[2018-01-10] MEDS: furosemide 40mg tablet PO SCH (07:35)
[2018-01-10] MEDS: lisinopril 10 MG tablet PO SCH (07:35)
[2018-01-10] MEDS: carVEDilol 12.5mg tablet PO SCH (07:35)
[2018-01-10] MEDS: famotidine 20mg tablet PO SCH (20:12)
[2018-01-10] MEDS: carVEDilol 3.125mg tablet PO SCH (20:12)
[2018-01-11] VITALS (7 sets, daily range): BP systolic 94–168; BP diastolic 57–82
[2018-01-11 05:31] LABS: BASOPHILS % (AUTO) 0.3 % (0-1); EOSINOPHILS # (AUTO) 0.4 X10'3 (0-0.9); EOSINOPHILS % (AUTO) 3.8 % (0-6); HEMATOCRIT 31.8 % (42.0-52.0); HEMOGLOBIN 10.8 g/dl (14.0-17.9); LYMPHOCYTES # (AUTO) 1.8 X10'3 (1.1-4.8); LYMPHOCYTES % (AUTO) 17.9 % (21-51); MEAN CORPUSCULAR HGB CONC 33.9 % (33.0-36.5); MEAN CORPUSCULAR VOLUME 94.4 FL (78-98); MEAN PLATELET VOLUME 9.6 FL (7.4-10.4); MONOCYTES % (AUTO) 10.5 % (2-12); NEUTROPHILS # (AUTO) 6.7 X10'3 (1.8-7.7); NEUTROPHILS % (AUTO) 67.5 % (42-75); PLATELET COUNT 169 X10'3 (140-440); RED BLOOD COUNT 3.36 X10'6 (4.70-6.10); RED CELL DISTRIBUTION WIDTH 13.3 % (11.5-14.5); WHITE BLOOD COUNT 9.9 X10'3 (4.5-11.0)
[2018-01-11] MEDS: acetaminophen 325mg tablet PO PRN ×2 (05:31→19:41)
[2018-01-11 05:37] LABS: ALANINE AMINOTRANSFERASE 16 U/L (12-78); ALBUMIN 3.1 G/DL (3.4-5.0); ALBUMIN/GLOBULIN RATIO 0.8 (1.1-1.5); ALKALINE PHOSPHATASE 99 IU/L (46-116); ANION GAP 13 (8-16); ASPARTATE AMINO TRANSFERASE 6 U/L (10-37); BILIRUBIN,TOTAL 0.3 MG/DL (0.1-1.0); BLOOD UREA NITROGEN 70 MG/DL (7-18); BUN/CREATININE RATIO 10.8 (5.4-32.0); CALCIUM 7.5 MG/DL (8.5-10.1); CHLORIDE 99 MMOL/L (99-107); CREATININE 6.51 MG/DL (0.60-1.10); GLUCOSE 100 MG/DL (70-104); MAGNESIUM 2.1 MG/DL (1.5-2.4); PHOSPHORUS 5.3 MG/DL (2.3-4.5); POTASSIUM 4.3 MMOL/L (3.5-5.1); SODIUM 139 MMOL/L (135-145); TOTAL CARBON DIOXIDE 26.6 MMOL/L (24-32); TOTAL PROTEIN 7.2 G/DL (6.4-8.2); eGFR 9 ML/MIN
[2018-01-11] MEDS: loratadine 10mg tablet PO SCH (07:28)
[2018-01-11] MEDS: atorvastatin 20mg tablet PO SCH (07:28)
[2018-01-11] MEDS: clopidogrel 75mg tablet PO SCH (07:28)
[2018-01-11] MEDS: aspirin 81mg tablet.DR PO SCH (07:28)
[2018-01-11] MEDS: carVEDilol 3.125mg tablet PO SCH ×2 (07:28→19:41)
[2018-01-11] MEDS: allopurinol 100mg tablet PO SCH (07:28)
[2018-01-11] MEDS ORDERED: lisinopril 2.5mg tablet PO SCH (08:00)
[2018-01-11] MEDS ORDERED: heparin 1,000unit/ml 10ml vial 10 ML IV ONE (09:07)
[2018-01-11] MEDS ORDERED: albumin (human) 25% 100ml IV 100 ML IV PRN (09:10)
[2018-01-11] MEDS ORDERED: heparin 1,000 units/ml 10ml inj IV ONE (09:10)
[2018-01-11] MEDS ORDERED: heparin 1,000 units/ml 10ml inj HE ONE ×2 (09:15)
[2018-01-11] MEDS: famotidine 20mg tablet PO SCH (20:21)
[2018-01-12] VITALS (8 sets, daily range): BP systolic 71–131; BP diastolic 31–77
[2018-01-12] MEDS: acetaminophen 325mg tablet PO PRN ×2 (01:52→08:25)
[2018-01-12 06:05] LABS: BASOPHILS # (AUTO) 0.1 X10'3 (0-0.2); BASOPHILS % (AUTO) 0.5 % (0-1); EOSINOPHILS # (AUTO) 0.3 X10'3 (0-0.9); EOSINOPHILS % (AUTO) 2.6 % (0-6); HEMATOCRIT 30.3 % (42.0-52.0); HEMOGLOBIN 10.4 g/dl (14.0-17.9); LYMPHOCYTES % (AUTO) 15.2 % (21-51); MEAN CORPUSCULAR HGB CONC 34.3 % (33.0-36.5); MEAN CORPUSCULAR VOLUME 93.4 FL (78-98); MEAN PLATELET VOLUME 9.1 FL (7.4-10.4); MONOCYTES # (AUTO) 1.7 X10'3 (0-0.9); MONOCYTES % (AUTO) 13.3 % (2-12); NEUTROPHILS # (AUTO) 8.8 X10'3 (1.8-7.7); NEUTROPHILS % (AUTO) 68.4 % (42-75); PLATELET COUNT 171 X10'3 (140-440); RED BLOOD COUNT 3.25 X10'6 (4.70-6.10); RED CELL DISTRIBUTION WIDTH 12.7 % (11.5-14.5); WHITE BLOOD COUNT 12.9 X10'3 (4.5-11.0)
[2018-01-12 06:48] LABS: ALANINE AMINOTRANSFERASE 16 U/L (12-78); ALBUMIN 3.2 G/DL (3.4-5.0); ALBUMIN/GLOBULIN RATIO 0.8 (1.1-1.5); ALKALINE PHOSPHATASE 80 IU/L (46-116); ANION GAP 11 (8-16); ASPARTATE AMINO TRANSFERASE 8 U/L (10-37); BILIRUBIN,TOTAL 0.7 MG/DL (0.1-1.0); BLOOD UREA NITROGEN 48 MG/DL (7-18); BUN/CREATININE RATIO 9.5 (5.4-32.0); CALCIUM 8.1 MG/DL (8.5-10.1); CHLORIDE 100 MMOL/L (99-107); CREATININE 5.06 MG/DL (0.60-1.10); GLUCOSE 112 MG/DL (70-104); MAGNESIUM 1.7 MG/DL (1.5-2.4); PHOSPHORUS 3.4 MG/DL (2.3-4.5); SODIUM 137 MMOL/L (135-145); TOTAL CARBON DIOXIDE 26.2 MMOL/L (24-32); TOTAL PROTEIN 7.3 G/DL (6.4-8.2); eGFR 11 ML/MIN
[2018-01-12] MEDS: allopurinol 100mg tablet PO SCH (08:23)
[2018-01-12] MEDS: carVEDilol 3.125mg tablet PO SCH ×2 (08:23→19:19)
[2018-01-12] MEDS: clopidogrel 75mg tablet PO SCH (08:23)
[2018-01-12] MEDS: aspirin 81mg tablet.DR PO SCH (08:23)
[2018-01-12] MEDS: loratadine 10mg tablet PO SCH (08:23)
[2018-01-12] MEDS: atorvastatin 20mg tablet PO SCH (08:23)
[2018-01-12 10:32] LABS: CLARITY,URINE SLIGHTLY CLOUDY (Clear); COLOR,URINE YELLOW (Yellow); GLUCOSE, URINE NEGATIVE (Neg); KETONES,URINE NEGATIVE (Neg); LEUKOCYTE ESTERASE ,URINE NEGATIVE (Neg); NITRITES, URINE NEGATIVE (Neg); OCCULT BLOOD,URINE TRACE-INTACT (Neg); PROTEIN,URINE 100 mg/dl (Neg); UROBILINOGEN,URINE 0.2 E.U/dL (0.2-1.0)
[2018-01-12 10:37] LABS: UA COLLECTION TYPE URINAL
[2018-01-12 10:38] LABS: BACTERIA,URINE NONE SEEN /HPF (Neg); RBC,URINE 0-2 /HPF (0-2); SQUAMOUS EPITHELIAL CELL,UR FEW /LPF (FEW); WBC,URINE NONE SEEN /HPF (0-4)
[2018-01-12 10:39] LABS: AMORPHOUS URATES 1+; MUCUS STRANDS FEW /LPF (Neg)
[2018-01-12] MEDS ORDERED: vancomycin/NS 1 GM ADD-VANTAGE 250 ML IV ONE (11:40)
[2018-01-12] MEDS: midodrine tablet 2.5 MG TABLET PO SCH (19:20)
[2018-01-12] MEDS: famotidine 20mg tablet PO SCH (20:36)
[2018-01-12] MEDS: lisinopril 2.5mg tablet PO SCH (20:37)
[2018-01-13] VITALS (7 sets, daily range): BP systolic 91–148; BP diastolic 48–82
[2018-01-13] MEDS: acetaminophen 325mg tablet PO PRN ×3 (02:08→19:41)
[2018-01-13 05:26] LABS: BASOPHILS % (AUTO) 0.3 % (0-1); EOSINOPHILS # (AUTO) 0.5 X10'3 (0-0.9); EOSINOPHILS % (AUTO) 3.6 % (0-6); HEMATOCRIT 29.5 % (42.0-52.0); HEMOGLOBIN 10.1 g/dl (14.0-17.9); LYMPHOCYTES # (AUTO) 1.8 X10'3 (1.1-4.8); MEAN CORPUSCULAR HEMOGLOBIN 32.3 PG (27.0-31.0); MEAN CORPUSCULAR HGB CONC 34.1 % (33.0-36.5); MEAN CORPUSCULAR VOLUME 94.8 FL (78-98); MEAN PLATELET VOLUME 9.4 FL (7.4-10.4); MONOCYTES # (AUTO) 1.7 X10'3 (0-0.9); MONOCYTES % (AUTO) 11.8 % (2-12); NEUTROPHILS % (AUTO) 71.3 % (42-75); PLATELET COUNT 179 X10'3 (140-440); RED BLOOD COUNT 3.11 X10'6 (4.70-6.10)
[2018-01-13 05:54] LABS: ALANINE AMINOTRANSFERASE 15 U/L (12-78); ALBUMIN/GLOBULIN RATIO 0.7 (1.1-1.5); ALKALINE PHOSPHATASE 81 IU/L (46-116); ANION GAP 11 (8-16); ASPARTATE AMINO TRANSFERASE 7 U/L (10-37); BILIRUBIN,TOTAL 0.5 MG/DL (0.1-1.0); BLOOD UREA NITROGEN 69 MG/DL (7-18); BUN/CREATININE RATIO 11.3 (5.4-32.0); CALCIUM 8.1 MG/DL (8.5-10.1); CHLORIDE 99 MMOL/L (99-107); CREATININE 6.08 MG/DL (0.60-1.10); GLUCOSE 117 MG/DL (70-104); MAGNESIUM 1.9 MG/DL (1.5-2.4); PHOSPHORUS 4.2 MG/DL (2.3-4.5); POTASSIUM 5.1 MMOL/L (3.5-5.1); SODIUM 135 MMOL/L (135-145); TOTAL CARBON DIOXIDE 24.7 MMOL/L (24-32); TOTAL PROTEIN 7.2 G/DL (6.4-8.2); eGFR 9 ML/MIN
[2018-01-13] MEDS: allopurinol 100mg tablet PO SCH (08:18)
[2018-01-13] MEDS: carVEDilol 3.125mg tablet PO SCH ×2 (08:18→19:41)
[2018-01-13] MEDS: loratadine 10mg tablet PO SCH (08:18)
[2018-01-13] MEDS: midodrine tablet 2.5 MG TABLET PO SCH ×2 (08:18→19:41)
[2018-01-13] MEDS: aspirin 81mg tablet.DR PO SCH (08:18)
[2018-01-13] MEDS: clopidogrel 75mg tablet PO SCH (08:18)
[2018-01-13] MEDS: atorvastatin 20mg tablet PO SCH (08:18)
[2018-01-13] MEDS ORDERED: heparin 1,000unit/ml 10ml vial 10 ML IV ONE (09:11)
[2018-01-13] MEDS ORDERED: albumin (human) 25% 100ml IV 100 ML IV PRN (09:15)
[2018-01-13] MEDS ORDERED: heparin 1,000 units/ml 10ml inj IV ONE (09:15)
[2018-01-13] MEDS ORDERED: epoetin 20,000 units/ml inj IV ONE (09:15)
[2018-01-13] MEDS ORDERED: heparin 1,000 units/ml 10ml inj HE ONE ×2 (09:15)
[2018-01-13] MEDS ORDERED: cefepime 1GM/NS ADD-VANTAGE 100 ML IV SCH (17:15)
[2018-01-13] MEDS ORDERED: cefepime inj. 1 GM in dextrose 5%-water 50ml 50 ML IV SCH (17:47)
[2018-01-13] MEDS: lactobacillus rhamnosus 10,000 MMU CELLS/CAPSULE PO SCH (19:41)
[2018-01-13] MEDS: famotidine 20mg tablet PO SCH (21:19)
[2018-01-13] MEDS: lisinopril 2.5mg tablet PO SCH (21:19)
[2018-01-14] VITALS (7 sets, daily range): BP systolic 98–143; BP diastolic 55–74
[2018-01-14 07:26] LABS: BASOPHILS % (AUTO) 0.4 % (0-1); EOSINOPHILS # (AUTO) 0.4 X10'3 (0-0.9); HEMATOCRIT 30.3 % (42.0-52.0); HEMOGLOBIN 10.2 g/dl (14.0-17.9); LYMPHOCYTES # (AUTO) 1.4 X10'3 (1.1-4.8); LYMPHOCYTES % (AUTO) 13.4 % (21-51); MEAN CORPUSCULAR HEMOGLOBIN 32.6 PG (27.0-31.0); MEAN CORPUSCULAR HGB CONC 33.7 % (33.0-36.5); MEAN CORPUSCULAR VOLUME 96.8 FL (78-98); MONOCYTES # (AUTO) 1.3 X10'3 (0-0.9); MONOCYTES % (AUTO) 12.4 % (2-12); NEUTROPHILS # (AUTO) 7.3 X10'3 (1.8-7.7); NEUTROPHILS % (AUTO) 69.8 % (42-75); PLATELET COUNT 184 X10'3 (140-440); RED BLOOD COUNT 3.13 X10'6 (4.70-6.10); RED CELL DISTRIBUTION WIDTH 12.9 % (11.5-14.5); WHITE BLOOD COUNT 10.5 X10'3 (4.5-11.0)
[2018-01-14 07:48] LABS: ALANINE AMINOTRANSFERASE 22 U/L (12-78); ALBUMIN 2.8 G/DL (3.4-5.0); ALBUMIN/GLOBULIN RATIO 0.7 (1.1-1.5); ALKALINE PHOSPHATASE 75 IU/L (46-116); ANION GAP 7 (8-16); ASPARTATE AMINO TRANSFERASE 12 U/L (10-37); BILIRUBIN,TOTAL 0.4 MG/DL (0.1-1.0); BLOOD UREA NITROGEN 46 MG/DL (7-18); BUN/CREATININE RATIO 10.3 (5.4-32.0); CALCIUM 8.1 MG/DL (8.5-10.1); CHLORIDE 102 MMOL/L (99-107); CREATININE 4.48 MG/DL (0.60-1.10); GLUCOSE 94 MG/DL (70-104); MAGNESIUM 1.8 MG/DL (1.5-2.4); POTASSIUM 4.7 MMOL/L (3.5-5.1); SODIUM 138 MMOL/L (135-145); TOTAL CARBON DIOXIDE 28.8 MMOL/L (24-32); TOTAL PROTEIN 7.1 G/DL (6.4-8.2); VANCOMYCIN,TROUGH 7.3 UG/ML (6.0-14.0); eGFR 13 ML/MIN
[2018-01-14] MEDS: loratadine 10mg tablet PO SCH (09:05)
[2018-01-14] MEDS: aspirin 81mg tablet.DR PO SCH (09:06)
[2018-01-14] MEDS: lactobacillus rhamnosus 10,000 MMU CELLS/CAPSULE PO SCH ×2 (09:06→19:16)
[2018-01-14] MEDS: carVEDilol 3.125mg tablet PO SCH ×2 (09:06→19:16)
[2018-01-14] MEDS: atorvastatin 20mg tablet PO SCH (09:07)
[2018-01-14] MEDS: midodrine tablet 2.5 MG TABLET PO SCH ×2 (09:07→19:16)
[2018-01-14] MEDS: clopidogrel 75mg tablet PO SCH (09:08)
[2018-01-14] MEDS: allopurinol 100mg tablet PO SCH (09:08)
[2018-01-14] MEDS: acetaminophen 325mg tablet PO PRN ×2 (09:13→19:17)
[2018-01-14] MEDS ORDERED: vancomycin/NS 1 GM ADD-VANTAGE 250 ML IV ONE (10:55)
[2018-01-14] MEDS: lisinopril 2.5mg tablet PO SCH (21:53)
[2018-01-14] MEDS: famotidine 20mg tablet PO SCH (21:54)
[2018-01-15] MEDS: acetaminophen 325mg tablet PO PRN ×2 (02:17→12:12)
[2018-01-15 03:00] VITALS: BP 134/67
[2018-01-15] MEDS ORDERED: VANCOMYCIN LEVEL IV SCH (03:00)
[2018-01-15 05:53] LABS: ALBUMIN 2.6 G/DL (3.4-5.0); ANION GAP 12 (8-16); BLOOD UREA NITROGEN 61 MG/DL (7-18); BUN/CREATININE RATIO 11.8 (5.4-32.0); CALCIUM 7.9 MG/DL (8.5-10.1); CHLORIDE 100 MMOL/L (99-107); CREATININE 5.15 MG/DL (0.60-1.10); GLUCOSE 207 MG/DL (70-104); POTASSIUM 4.6 MMOL/L (3.5-5.1); SODIUM 136 MMOL/L (135-145); TOTAL CARBON DIOXIDE 23.8 MMOL/L (24-32); VANCOMYCIN,RANDOM 17.2 UG/ML; eGFR 11 ML/MIN
[2018-01-15 06:00] VITALS: BP 122/70
[2018-01-15] MEDS ORDERED: vancomycin/NS 1 GM ADD-VANTAGE 250 ML IV PRN (08:00)
[2018-01-15] MEDS: carVEDilol 3.125mg tablet PO SCH (08:24)
[2018-01-15] MEDS: loratadine 10mg tablet PO SCH (08:24)
[2018-01-15] MEDS: lactobacillus rhamnosus 10,000 MMU CELLS/CAPSULE PO SCH (08:25)
[2018-01-15] MEDS: aspirin 81mg tablet.DR PO SCH (08:25)
[2018-01-15] MEDS: clopidogrel 75mg tablet PO SCH (08:26)
[2018-01-15] MEDS: allopurinol 100mg tablet PO SCH (08:26)
[2018-01-15] MEDS: atorvastatin 20mg tablet PO SCH (08:26)
[2018-01-15] MEDS: midodrine tablet 2.5 MG TABLET PO SCH (08:26)
[2018-01-15] MEDS ORDERED: COR3.125T PO (09:26)
[2018-01-15] MEDS ORDERED: FAMO20TA8 PO (09:26)
[2018-01-15] MEDS ORDERED: MIDO5TAB PO (09:26)
[2018-01-15] MEDS ORDERED: LISI2.5T2 PO (09:26)
[2018-01-15 11:00] VITALS: BP 137/73
[2018-01-15] MEDS ORDERED: PRED10TA23 PO (14:53)
[2018-01-15] MEDS ORDERED: midodrine tablet 2.5 MG TABLET PO SCH (20:00)
== END 2018-01-15 12:25 | disposition home or self-care (01) | DRG 682 ==
LOC: ER 22:59 → ED HOLD 01-09 01:30 → PCU 3S 01-09 07:27
PROVIDERS: ADMIT Internal Medicine Critical Care Medicine; ATTEND Internal Medicine Critical Care Medicine
PROC: 5A1D70Z Performance of Urinary Filtration, Intermittent, Less than 6 Hours Per Day (ICD-10-PCS; principal; 2018-01-09)
PROC: 5A1D70Z Performance of Urinary Filtration, Intermittent, Less than 6 Hours Per Day (ICD-10-PCS; 2018-01-11)
PROC: 5A1D70Z Performance of Urinary Filtration, Intermittent, Less than 6 Hours Per Day (ICD-10-PCS; 2018-01-14)
DX: N17.9 Acute kidney failure, unspecified (principal); I50.21 Acute systolic (congestive) heart failure; I13.2 Hypertensive heart and chronic kidney disease with heart failure and with stage 5 chronic kidney disease, or end stage renal disease; E11.22 Type 2 diabetes mellitus with diabetic chronic kidney disease; E83.51 Hypocalcemia; N18.6 End stage renal disease; K21.9 Gastro-esophageal reflux disease without esophagitis; G89.29 Other chronic pain; N14.1 Nephropathy induced by other drugs, medicaments and biological substances; I95.1 Orthostatic hypotension; I25.10 Atherosclerotic heart disease of native coronary artery without angina pectoris; M10.9 Gout, unspecified; Z99.2 Dependence on renal dialysis; Z95.5 Presence of coronary angioplasty implant and graft; Z79.899 Other long term (current) drug therapy; Z79.82 Long term (current) use of aspirin; Z79.02 Long term (current) use of antithrombotics/antiplatelets; Z82.49 Family history of ischemic heart disease and other diseases of the circulatory system; Z83.3 Family history of diabetes mellitus
CPT/HCPCS: 36415; 70450; 71045; 72125; 73501; 73552; 73590; 80048; 80053; 80202; 81001; 82948; 83605; 83735; 84100; 84484; 85025; 85610; 85730; 87040; 87070; 93005; 93880; 93930; 93970; 96365; 96375; 97116; 97162; 97530; 99285; A6258; G0257; J0692; J0885; J1644; J2150; J3370; J7030; J7060; P9047

== ENCOUNTER 2023-07-16 21:10 | Emergency (ER) | payer MEDICARE, MEDICAID ==
[~2023-07-16] VITALS: Ht 157.5 cm; Wt 85.3 kg
[~2023-07-16 21:10] MED LIST changes: -ATOR40TA PO; -CARV-50 PO; +COR3.125T PO; +FAMO20TA8 PO; -FURO-149 PO; -LISI10TA4 PO; +LISI2.5T14 PO; +MIDO5TAB4 PO; -RANI150T44 PO
[2023-07-16 21:23] VITALS: BP 205/85; PULSE 80; RESP 16; TEMP 98.1; O2SAT 100
== END 2023-07-16 23:28 | disposition home or self-care (01) ==
LOC: ER 21:11
DX: S00.85XA Superficial foreign body of other part of head, initial encounter (principal); I12.9 Hypertensive chronic kidney disease with stage 1 through stage 4 chronic kidney disease, or unspecified chronic kidney disease; E13.22 Other specified diabetes mellitus with diabetic chronic kidney disease; N18.9 Chronic kidney disease, unspecified; X58.XXXA Exposure to other specified factors, initial encounter; Y93.89 Activity, other specified; Y92.89 Other specified places as the place of occurrence of the external cause; Y99.8 Other external cause status
CPT/HCPCS: 70140; 99283